=== PATIENT | female | born 1935 | race Hispanic/Latino ===

== ENCOUNTER 2021-01-07 11:49 | Emergency (ER) | payer MEDICARE, BC | END 2021-01-07 14:19 | disposition left against medical advice (07) | LOC: EDH 11:49 ==

== ENCOUNTER → 2021-01-22 | Outpatient (CLI) | payer MEDICARE, BC | END | disposition home or self-care (01) | LOC: RAH 13:48 | PROVIDERS: ATTEND Otolaryngology Plastic Surgery within the Head & Neck | DX: J32.8 Other chronic sinusitis (principal); J34.2 Deviated nasal septum; K08.20 Unspecified atrophy of edentulous alveolar ridge | CPT/HCPCS: 70486 ==

== ENCOUNTER 2021-04-07 14:47 | Emergency (ER) | payer MEDICARE, BC ==
[~2021-04-07] VITALS: Ht 167.6 cm; Wt 63.5 kg
[2021-04-07 14:51] VITALS: BP 145/71
[2021-04-07 15:51] LABS: BASOPHILS % (AUTO) 0.6 % (0.0-5.0); EOSINOPHILS % (AUTO) 5.6 % (0.0-8.0); HEMATOCRIT 39.7 % (36-48); LYMPHOCYTES % (AUTO) 10.6 % (21.0-51.0); MEAN CORPUSCULAR HEMOGLOBIN 32.4 pg (27.0-33.0); MEAN CORPUSCULAR HGB CONC 33.2 g/dL (32.0-36.0); MEAN CORPUSCULAR VOLUME 97.5 fL (79-99); MONOCYTES % (AUTO) 7.8 % (3.0-13.0); NEUTROPHILS % (AUTO) 75.2 % (40.0-77.0); PLATELET COUNT (AUTO) 248 K/uL (130-400); RED BLOOD CELL COUNT(AUTO) 4.07 MIL/uL (4.00-5.50); RED CELL DISTRIBUTION WIDTH 12.6 % (11.0-15.5)
[2021-04-07 16:08] LABS: POTASSIUM 4.4 mmol/L (3.5-5.1)
[2021-04-07 16:11] LABS: INR 1.28 (0.85-1.15); PROTHROMBIN TIME 13.6 SEC (9.6-11.6)
[2021-04-07 16:13] LABS: ALBUMIN 3.1 g/dL (3.5-5.0); BILIRUBIN,TOTAL 0.6 mg/dL (0.2-1.0); TOTAL PROTEIN, SERUM 7.3 g/dL (6.0-8.3)
[2021-04-07 16:17] LABS: B-TYPE NATRIURETIC PEPTIDE 973 pg/mL (0-100)
[2021-04-07] MEDS ORDERED: AZIT500T PO (17:05)
[2021-04-07] MEDS ORDERED: FAMO-136 PO (17:05)
== END 2021-04-07 17:27 | disposition home or self-care (01) ==
LOC: EDH 14:47
DX: K05.10 Chronic gingivitis, plaque induced (principal); H66.93 Otitis media, unspecified, bilateral; R68.84 Jaw pain; E11.9 Type 2 diabetes mellitus without complications; E78.00 Pure hypercholesterolemia, unspecified; I11.0 Hypertensive heart disease with heart failure; I50.9 Heart failure, unspecified; Z95.810 Presence of automatic (implantable) cardiac defibrillator
CPT/HCPCS: 36415; 70110; 80053; 83880; 84484; 85025; 85610; 93005

== ENCOUNTER 2021-06-30 20:05 | Emergency (ER) | payer MEDICARE, BC ==
[~2021-06-30 20:05] MED LIST: AZIT500T PO; FAMO-136 PO
[2021-06-30] MEDS ORDERED: ONDANSETRON 4MG INJ IVP SCH (21:00)
[2021-06-30] MEDS ORDERED: 0.9%NACL 1000ML 1,000 ML IV SCH (21:00)
[2021-06-30 21:07] LABS: BASOPHILS % (AUTO) 0.4 % (0.0-5.0); EOSINOPHILS % (AUTO) 6.2 % (0.0-8.0); HEMATOCRIT 39.2 % (36-48); LYMPHOCYTES % (AUTO) 10.4 % (21.0-51.0); MEAN CORPUSCULAR HEMOGLOBIN 31.1 pg (27.0-33.0); MEAN CORPUSCULAR HGB CONC 32.4 g/dL (32.0-36.0); MEAN CORPUSCULAR VOLUME 96.1 fL (79-99); MONOCYTES % (AUTO) 7.8 % (3.0-13.0); PLATELET COUNT (AUTO) 223 K/uL (130-400); RED BLOOD CELL COUNT(AUTO) 4.08 MIL/uL (4.00-5.50); WHITE BLOOD COUNT (AUTO) 8.6 K/uL (4.8-10.8)
[2021-06-30 21:37] LABS: POTASSIUM 4.4 mmol/L (3.5-5.1)
[2021-06-30 21:43] LABS: ALBUMIN 3.5 g/dL (3.5-5.0); BILIRUBIN,TOTAL 0.8 mg/dL (0.2-1.0); TOTAL PROTEIN, SERUM 7.8 g/dL (6.0-8.3)
[2021-06-30 23:09] VITALS: BP 164/71
[2021-06-30] MEDS ORDERED: ONDA4TAB4 PO (23:59)
[2021-07-01] MEDS ORDERED: ONDANSETRON ODT 4MG TAB ONE (00:12)
[2021-07-01] MEDS ORDERED: ONDANSETRON ODT 4MG TAB SL ONE (00:30)
== END 2021-07-01 00:15 | disposition home or self-care (01) ==
LOC: EDH 20:05
DX: R11.2 Nausea with vomiting, unspecified (principal); R10.13 Epigastric pain; I11.0 Hypertensive heart disease with heart failure; I50.9 Heart failure, unspecified; E11.9 Type 2 diabetes mellitus without complications; I25.10 Atherosclerotic heart disease of native coronary artery without angina pectoris; Z88.0 Allergy status to penicillin; Z79.899 Other long term (current) drug therapy; Z95.810 Presence of automatic (implantable) cardiac defibrillator
CPT/HCPCS: 36415; 74018; 80053; 83690; 84484 ×2; 85025; 93005; 96361; 96374; 99285; J2405; J7030

== ENCOUNTER 2022-03-30 06:52 | Observation (INO) | payer MEDICARE ==
[~2022-03-30] VITALS: Ht 165.1 cm; Wt 59.5 kg
[~2022-03-30 06:52] MED LIST changes: +ONDA4TAB4 PO
[2022-03-30 07:14] LABS: BASOPHILS % (AUTO) 0.3 % (0.0-5.0); EOSINOPHILS % (AUTO) 0.8 % (0.0-8.0); HEMATOCRIT 40.4 % (36-48); LYMPHOCYTES % (AUTO) 12.9 % (21.0-51.0); MEAN CORPUSCULAR HEMOGLOBIN 31.7 pg (27.0-33.0); MEAN CORPUSCULAR HGB CONC 34.4 g/dL (32.0-36.0); MEAN CORPUSCULAR VOLUME 92.2 fL (79-99); MONOCYTES % (AUTO) 5.2 % (3.0-13.0); NEUTROPHILS % (AUTO) 80.5 % (40.0-77.0); PLATELET COUNT (AUTO) 294 K/uL (130-400); RED BLOOD CELL COUNT(AUTO) 4.38 MIL/uL (4.00-5.50); RED CELL DISTRIBUTION WIDTH 13.3 % (11.0-15.5); WHITE BLOOD COUNT (AUTO) 9.7 K/uL (4.8-10.8)
[2022-03-30 07:30] LABS: INR 1.2 (0.85-1.15); PROTHROMBIN TIME 12.9 SEC (9.6-11.6)
[2022-03-30 07:30] LABS: APPEARANCE,URINE CLEAR (CLEAR); BILIRUBIN,URINE NEGATIVE (NEGATIVE); COLOR,URINE YELLOW (YELLOW); GLUCOSE, URINE (UA) 250 mg/dL (NEGATIVE); KETONES,URINE 15 mg/dL (NEGATIVE); LEUKOCYTE ESTERASE ,URINE NEGATIVE (NEGATIVE); NITRATE,URINE NEGATIVE (NEGATIVE); OCCULT BLOOD,URINE SMALL (NEGATIVE); PH,URINE 5.5 (5.0-8.0); PROTEIN,URINE TRACE mg/dL (NEGATIVE); UROBILINOGEN,URINE 0.2 mg/dL (0.2-1.0)
[2022-03-30] MEDS ORDERED: DICYCLOMINE HCL 10 MG/5 ML ML PO ONE (07:30)
[2022-03-30] MEDS ORDERED: MAG/ALUM/SIMETH 30 ML UDCUP PO ONE (07:30)
[2022-03-30] MEDS ORDERED: LIDOCAINE HCL 2% VISCOUS 15 ML UDCUP PO ONE (07:30)
[2022-03-30] MEDS ORDERED: ONDANSETRON 4MG INJ IVP ONE (07:30)
[2022-03-30 07:33] LABS: ALBUMIN 3.1 g/dL (3.5-5.0); POTASSIUM 4.4 mmol/L (3.5-5.1); TOTAL PROTEIN, SERUM 7.2 g/dL (6.0-8.3)
[2022-03-30 07:36] LABS: BACTERIA,URINE Rare /HPF (None Seen); RBC,URINE 0-1 /HPF (0-1); SQUAMOUS EPITHELIAL CELL,UR Rare /HPF (0-2); WBC,URINE 0-1 /HPF (0-1)
[2022-03-30] MEDS ORDERED: ASPIRIN 325MG TAB ONE (07:51)
[2022-03-30] MEDS ORDERED: NITROGLYCERIN 1GM OINT 1 INCH/1GM TD ONE ×2 (07:51→08:00)
[2022-03-30] MEDS ORDERED: ASPIRIN 325MG EC TAB PO ONE (08:00)
[2022-03-30] MEDS ORDERED: ONDANSETRON 4MG INJ IV PRN (09:30)
[2022-03-30] MEDS ORDERED: CLOPIDOGREL 300MG TAB PO SCH (09:30)
[2022-03-30] MEDS ORDERED: ACETAMINOPHEN 325 MG TAB PO PRN ×2 (09:30)
[2022-03-30] MEDS: NITROGLYCERIN 1GM OINT 1 INCH/1GM TD SCH ×2 (09:30→17:36)
[2022-03-30] MEDS ORDERED: MORPHINE 2 MG SYG IV PRN (09:30)
[2022-03-30] MEDS ORDERED: ZOLP5TAB8 PO (09:39)
[2022-03-30] MEDS ORDERED: UBID10CA6 PO (09:39)
[2022-03-30] MEDS ORDERED: BISO10TA16 PO (09:39)
[2022-03-30] MEDS ORDERED: LEVO75CA5 PO (09:39)
[2022-03-30] MEDS ORDERED: FURO10DI11 IJ (09:39)
[2022-03-30] MEDS ORDERED: SITA100T12 PO (09:39)
[2022-03-30] MEDS ORDERED: POTA-187 PO (09:39)
[2022-03-30] MEDS ORDERED: DABI150C PO (09:39)
[2022-03-30 09:46] LABS: HEMOGLOBIN A1C 7.8 % (4.0-6.0)
[2022-03-30] MEDS: BISACODYL 5 MG TABLET.DR PO SCH ×3 (10:14→21:32)
[2022-03-30] MEDS: METOPROLOL SUCCINATE 50 MG TAB.SR.24H PO SCH (10:14)
[2022-03-30] MEDS: HYDROCHLOROTHIAZIDE 25 MG TABLET PO SCH (10:14)
[2022-03-30 11:27] VITALS: BP 146/75
[2022-03-30 15:25] VITALS: BP 139/70
[2022-03-30] MEDS ORDERED: FUROSEMIDE 40MG VIAL IV SCH (17:30)
[2022-03-30 19:30] VITALS: BP 116/57
[2022-03-30] MEDS ORDERED: ZOLPIDEM TARTRATE 5 MG TAB PO SCH (21:00)
[2022-03-30] MEDS ORDERED: DABIGATRAN 150MG CAPSULE PO SCH (21:00)
[2022-03-30] MEDS: FAMOTIDINE 20MG TAB PO SCH (21:32)
[2022-03-30] MEDS: ENOXAPARIN SODIUM 80 MG/0.8 ML SQ SCH (21:33)
[2022-03-31 00:08] VITALS: BP 140/65
[2022-03-31] MEDS: NITROGLYCERIN 1GM OINT 1 INCH/1GM TD SCH ×2 (02:02→08:18)
[2022-03-31 04:00] VITALS: BP 137/65
[2022-03-31] MEDS ORDERED: LEVOTHYROXINE 75 MCG TABLET PO SCH (06:30)
[2022-03-31 08:00] VITALS: BP 126/63
[2022-03-31] MEDS: FAMOTIDINE 20MG TAB PO SCH (08:08)
[2022-03-31] MEDS: METOPROLOL SUCCINATE 50 MG TAB.SR.24H PO SCH (08:09)
[2022-03-31] MEDS: HYDROCHLOROTHIAZIDE 25 MG TABLET PO SCH (08:09)
[2022-03-31] MEDS: ENOXAPARIN SODIUM 80 MG/0.8 ML SQ SCH (08:11)
[2022-03-31] MEDS ORDERED: POTASSIUM CHLORIDE 10MEQ SR TAB PO SCH (09:00)
[2022-03-31] MEDS ORDERED: CLOPIDOGREL 75MG TAB PO SCH (09:00)
[2022-03-31 10:33] LABS: CREATININE 1.2 mg/dL (0.5-1.5); MAGNESIUM 1.8 mg/dL (1.80-2.40); POTASSIUM 3.1 mmol/L (3.5-5.1)
[2022-03-31] MEDS ORDERED: POTA-202 PO (10:47)
[2022-03-31] MEDS ORDERED: HYDR25TA PO (10:47)
[2022-03-31] MEDS ORDERED: METO50TA9 PO (10:47)
[2022-03-31 12:16] VITALS: BP 122/59
== END 2022-03-31 15:49 | disposition home or self-care (01) ==
LOC: EDH 06:52 → EDHIP 09:05 → 2DH 11:16
PROVIDERS: ADMIT Internal Medicine; ATTEND Internal Medicine
DX: I24.9 Acute ischemic heart disease, unspecified (principal); A08.4 Viral intestinal infection, unspecified; R07.89 Other chest pain; I16.0 Hypertensive urgency; I11.0 Hypertensive heart disease with heart failure; I50.9 Heart failure, unspecified; I45.9 Conduction disorder, unspecified; E11.9 Type 2 diabetes mellitus without complications; J98.11 Atelectasis; E03.9 Hypothyroidism, unspecified; E78.5 Hyperlipidemia, unspecified; R77.8 Other specified abnormalities of plasma proteins; Z88.0 Allergy status to penicillin; Z96.651 Presence of right artificial knee joint; Z95.0 Presence of cardiac pacemaker; Z79.899 Other long term (current) drug therapy; Z98.890 Other specified postprocedural states
CPT/HCPCS: 96374; 96372 ×2; 96375; 99285; 83036; 82550 ×3; 83874 ×3; 84484 ×4; 80053; 83880 ×2; 83690; 85025; 85610; 81001; 36415 ×2; 71045; 74176; 93005 ×5; 83735; 80061; 80048; G0378 ×31; J2405; J1650 ×2; J1940

== ENCOUNTER 2022-08-01 08:49 | Emergency (ER) | payer MEDICARE ==
[~2022-08-01] VITALS: Ht 165.1 cm; Wt 61.7 kg
[~2022-08-01 08:49] MED LIST changes: -AZIT500T PO; +DABI150C PO; -FAMO-136 PO; +HYDR25TA PO; +LEVO75CA5 PO; +METO50TA9 PO; -ONDA4TAB4 PO; +POTA-202 PO; +SITA100T12 PO; +UBID10CA6 PO; +ZOLP5TAB8 PO
[2022-08-01 09:20] LABS: BASOPHILS % (AUTO) 0.5 % (0.0-5.0); EOSINOPHILS % (AUTO) 1.3 % (0.0-8.0); HEMATOCRIT 43.1 % (36-48); LYMPHOCYTES % (AUTO) 23.9 % (21.0-51.0); MEAN CORPUSCULAR HEMOGLOBIN 31.5 pg (27.0-33.0); MEAN CORPUSCULAR HGB CONC 33.2 g/dL (32.0-36.0); MEAN CORPUSCULAR VOLUME 94.9 fL (79-99); MONOCYTES % (AUTO) 5.9 % (3.0-13.0); NEUTROPHILS % (AUTO) 68.2 % (40.0-77.0); PLATELET COUNT (AUTO) 251 K/uL (130-400); RED BLOOD CELL COUNT(AUTO) 4.54 MIL/uL (4.00-5.50); RED CELL DISTRIBUTION WIDTH 14.5 % (11.0-15.5); WHITE BLOOD COUNT (AUTO) 8.5 K/uL (4.8-10.8)
[2022-08-01 09:27] LABS: INR 0.99 (0.85-1.15); PROTHROMBIN TIME 10.8 SEC (9.6-11.6)
[2022-08-01 09:30] LABS: CREATININE 0.9 mg/dL (0.5-1.5); POTASSIUM 4.5 mmol/L (3.5-5.1)
[2022-08-01 09:36] LABS: ALBUMIN 3.3 g/dL (3.5-5.0); TOTAL PROTEIN, SERUM 7.5 g/dL (6.0-8.3)
[2022-08-01 10:44] VITALS: BP 158/63
[2022-08-01] MEDS ORDERED: ACETAMINOPHEN 325 MG TAB PO PRN ×2 (11:30)
[2022-08-01] MEDS ORDERED: MAG/ALUM/SIMETH 30 ML UDCUP PO PRN (11:30)
[2022-08-01] MEDS ORDERED: ONDANSETRON 4MG INJ IV PRN (11:30)
[2022-08-01] MEDS ORDERED: LACTULOSE 20 GM/30 ML UDCUP PO PRN (11:30)
[2022-08-01] MEDS ORDERED: BISO5TAB19 PO (12:19)
[2022-08-01] MEDS ORDERED: ATOR20TA65 PO (12:19)
[2022-08-01] MEDS ORDERED: LEVO75CA5 PO (12:19)
[2022-08-01] MEDS ORDERED: CHOL200041 PO (12:19)
[2022-08-01] MEDS ORDERED: DABI150C PO (12:19)
[2022-08-01] MEDS ORDERED: ZOLP10TA2 PO (12:19)
[2022-08-01] MEDS ORDERED: POTA-202 PO (12:19)
[2022-08-01] MEDS ORDERED: BISO10TA16 PO (12:19)
[2022-08-01] MEDS ORDERED: FAMOTIDINE 20MG TAB PO SCH (21:00)
== END 2022-08-01 15:52 | disposition left against medical advice (07) ==
LOC: EDH 08:49
DX: Z45.018 Encounter for adjustment and management of other part of cardiac pacemaker (principal); I11.0 Hypertensive heart disease with heart failure; I50.9 Heart failure, unspecified; E11.9 Type 2 diabetes mellitus without complications; E78.00 Pure hypercholesterolemia, unspecified; Z96.653 Presence of artificial knee joint, bilateral; Z98.890 Other specified postprocedural states; Z79.899 Other long term (current) drug therapy; Z88.0 Allergy status to penicillin
CPT/HCPCS: 36415; 71045; 80053; 84484; 85025; 85610; 93005

== ENCOUNTER 2023-07-16 17:28 | Emergency (ER) | payer OTHER, MEDICARE ==
[~2023-07-16] VITALS: Ht 162.6 cm; Wt 56.7 kg
[~2023-07-16 17:28] MED LIST changes: +ATOR20TA65 PO; +BISO10TA16 PO; +BISO5TAB19 PO; +CHOL200041 PO; +ZOLP10TA2 PO
[2023-07-16] MEDS ORDERED: CACL 1GM SYG IVP ONE (17:29)
[2023-07-16] MEDS ORDERED: SODIUM BICARB 8.4% 50ML SYRINGE IVP ONE (17:29)
[2023-07-16] MEDS ORDERED: EPINEPHRINE 1MG/10ML(1:10,000) 0.1 MG/ML SYG IVP ONE (17:29)
[2023-07-16] MEDS ORDERED: AMIODARONE 150MG VIAL IV ONE (17:29)
[2023-07-16 17:31] VITALS: BP 158/54; PULSE 143; RESP 22; O2SAT 98
[2023-07-16] MEDS ORDERED: EPINEPHRINE 1 MG/ML 30ML VIAL IJ ONE (17:46)
== END 2023-07-16 18:03 ==
LOC: EDH 17:28
DX: I46.9 Cardiac arrest, cause unspecified (principal); I10 Essential (primary) hypertension; I48.91 Unspecified atrial fibrillation; J44.9 Chronic obstructive pulmonary disease, unspecified; Z79.899 Other long term (current) drug therapy; Z98.890 Other specified postprocedural states; Z88.8 Allergy status to other drugs, medicaments and biological substances
CPT/HCPCS: 99285; 92950; 82948; 93005; J0171 ×2; J3490 ×2; J0282